=== PATIENT | male | born 1985 | race African-American/Black ===

== ENCOUNTER → 2017-06-20 | Outpatient (CLI) | payer OTHER ==
--- NOTE | 2017-06-20 17:37 | US ---
EXAMINATION TYPE: US scrotum with doppler. Grayscale and color Doppler Duplex imaging performed of t emelina scrotum. 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 Lump left testicle EXAM MEASUREMENTS: TESTICLES: Right Testicle: 2.8 x 1.3 x 2.8 cm Left Testicle: 3.6 x 1.5 x 2.6 cm EPIDIDYMIS HEAD: Right Epididymis: 0.7 cm Left Epididymis: 0.8 cm Doppler performed to assess for testicular vascularity; good bilateral color flow and waveforms are s een. There is no evidence of testicular torsion. Presence of hydroceles: fluid collection lateral to left testicle = 3.2cm Presence of varicoceles: no Cystic area right epididymis = 0.5cm IMPRESSION: No testicular torsion or mass. Mild left-sided hydrocele. Small right epididymal cyst.
== END | disposition home or self-care (01) ==
LOC: RADUSWWP 16:21
PROVIDERS: ATTEND Internal Medicine
DX: N43.3 Hydrocele, unspecified (principal); N50.3 Cyst of epididymis
CPT/HCPCS: 76870; 93975